=== PATIENT | female | born 1950 | race Caucasian/White ===

== ENCOUNTER → 2017-05-28 | Outpatient (CLI) | payer BC, MEDICARE ==
[~2017-05-28] MED LIST: NO HOME MEDICATIONS; NORCO 325 MG-51 TAB PO; PROLIA60 MG/ML SC
== END ==
LOC: MC.RAD 12:57
DX: Z12.31 Encounter for screening mammogram for malignant neoplasm of breast (principal); Z98.82 Breast implant status

== ENCOUNTER → 2018-06-23 | Outpatient (CLI) | payer MEDICARE, BC | LOC: MC.RAD 09:38 | DX: Z12.31 Encounter for screening mammogram for malignant neoplasm of breast (principal); Z98.82 Breast implant status ==

== ENCOUNTER 2018-11-17 15:20 | Outpatient (CLI) | payer MEDICARE, BC ==
[~2018-11-17] VITALS: Ht 157.5 cm; Wt 58.0 kg
[2018-11-17 16:03] VITALS: BP 113/52; PULSE 80; TEMP 98
[2018-11-17] MEDS ORDERED: OMEGA-31 SGL PO (16:07)
[2018-11-17] MEDS ORDERED: VITAMIND3 5000 PO (16:08)
== END 2018-11-17 16:44 | disposition home or self-care (01) ==
LOC: EUO 15:20
DX: M81.0 Age-related osteoporosis without current pathological fracture (principal)
CPT/HCPCS: J0897

== ENCOUNTER → 2020-06-20 | Outpatient (CLI) | payer MEDICARE, BC ==
[~2020-06-20] MED LIST changes: +OMEGA-31 SGL PO; +ONE-A-DAY ESSE1 EACH PO; +THYROTAIN PO; +VITAMIN C500 MG PO; +VITAMIND3 5000 PO
== END ==
LOC: MC.RAD 09:09
DX: Z12.31 Encounter for screening mammogram for malignant neoplasm of breast (principal); Z98.82 Breast implant status

== ENCOUNTER 2020-06-22 08:32 | Outpatient (CLI) | payer MEDICARE, BC ==
[~2020-06-22] VITALS: Ht 157.5 cm; Wt 59.8 kg
[~2020-06-22 08:32] MED LIST changes: -ONE-A-DAY ESSE1 EACH PO; -THYROTAIN PO; -VITAMIN C500 MG PO
[2020-06-22] MEDS ORDERED: ONE-A-DAY ESSE1 EACH PO (08:46)
[2020-06-22] MEDS ORDERED: VITAMIN C500 MG PO (08:46)
[2020-06-22] MEDS ORDERED: THYROTAIN PO (08:46)
[2020-06-22 08:47] VITALS: BP 130/79; PULSE 93; TEMP 98.5
== END 2020-06-22 08:58 | disposition home or self-care (01) ==
LOC: EUO 08:32
DX: M81.0 Age-related osteoporosis without current pathological fracture (principal)
CPT/HCPCS: J0897

== ENCOUNTER → 2020-06-28 | Outpatient (CLI) | payer MEDICARE, BC ==
[~2020-06-28] MED LIST changes: +ONE-A-DAY ESSE1 EACH PO; +THYROTAIN PO; +VITAMIN C500 MG PO
== END ==
LOC: MC.RAD 08:14
DX: N60.01 Solitary cyst of right breast (principal); N60.02 Solitary cyst of left breast

== ENCOUNTER 2021-01-16 15:02 | Outpatient (CLI) | payer MEDICARE, BC ==
[~2021-01-16] VITALS: Ht 157.5 cm; Wt 59.0 kg
[2021-01-16 15:25] VITALS: BP 116/58; PULSE 77; TEMP 98
== END 2021-01-16 15:28 | disposition home or self-care (01) ==
LOC: EUO 15:02
DX: M81.0 Age-related osteoporosis without current pathological fracture (principal)
CPT/HCPCS: J0897

== ENCOUNTER → 2021-11-26 | Outpatient (CLI) | payer MEDICARE, BC | LOC: MC.RAD 10:18 | DX: Z12.31 Encounter for screening mammogram for malignant neoplasm of breast (principal) ==

== ENCOUNTER 2021-12-06 10:51 | Outpatient (CLI) | payer MEDICARE, BC ==
[~2021-12-06] VITALS: Ht 157.5 cm; Wt 59.5 kg
[2021-12-06 11:28] VITALS: BP 136/87; PULSE 83; TEMP 98.8
== END 2021-12-06 18:20 | disposition home or self-care (01) ==
LOC: EUO 10:51
DX: M81.0 Age-related osteoporosis without current pathological fracture (principal)
CPT/HCPCS: J0897

== ENCOUNTER 2023-04-06 14:23 | Outpatient (CLI) | payer MEDICARE, BC ==
[~2023-04-06] VITALS: Ht 157.5 cm; Wt 60.4 kg
[2023-04-06 13:56] VITALS: BP 124/71; PULSE 82; TEMP 98.4
[~2023-04-06 14:23] MED LIST changes: +COQ; +K FORCE; +PROGESTERONE; +THE MEDICINE S200 M2 PO; +THYROTAIN; +[UNRECOGNIZED DRUG - OTHER]
--- NOTE | 2023-04-06 14:25 | NUR ---
pt tolerated prolia injection well. pt's vs remained within normal limits and she ambulated independently to main lobby following injection. pt was free from concerns and complaints at time of discharge.
== END 2023-04-06 14:26 | disposition home or self-care (01) ==
LOC: EUO 14:23
DX: M81.0 Age-related osteoporosis without current pathological fracture (principal)
CPT/HCPCS: J0897